=== PATIENT | female | born 1995 | race Caucasian/White ===

== ENCOUNTER → 2024-01-19 09:53 | Outpatient (REF) | payer OTHER, SELFPAY | LOC: RAD 09:53 | PROVIDERS: ATTENDING PHYSICIAN Physician Assistant Medical; FAMILY PHYSICIAN Family Medicine | DX: R10.11 Right upper quadrant pain (principal); R10.84 Generalized abdominal pain; K21.9 Gastro-esophageal reflux disease without esophagitis | CPT/HCPCS: 76700 ==

== ENCOUNTER → 2024-05-11 10:12 | Outpatient (REF) | payer OTHER, SELFPAY | LOC: RAD 10:12 | PROVIDERS: ATTENDING PHYSICIAN Obstetrics & Gynecology; FAMILY PHYSICIAN Family Medicine | DX: O26.859 Spotting complicating pregnancy, unspecified trimester (principal) | CPT/HCPCS: 76801; 76817 ==

== ENCOUNTER → 2024-05-25 08:45 | Outpatient (REF) | payer OTHER, SELFPAY | LOC: PNTC 08:45 | PROVIDERS: ATTENDING PHYSICIAN Nurse Practitioner Family | DX: O36.80X0 Pregnancy with inconclusive fetal viability, not applicable or unspecified (principal) | CPT/HCPCS: 76801; 76817 ==

== ENCOUNTER → 2024-06-22 06:52 | Outpatient (REF) | payer OTHER, SELFPAY | LOC: PNTC 06:52 | PROVIDERS: ATTENDING PHYSICIAN Obstetrics & Gynecology | DX: Z36.0 Encounter for antenatal screening for chromosomal anomalies (principal); Z36.82 Encounter for antenatal screening for nuchal translucency | CPT/HCPCS: 76801; 76813 ==

== ENCOUNTER → 2024-07-20 06:57 | Outpatient (REF) | payer OTHER, SELFPAY | LOC: PNTC 06:57 | PROVIDERS: ATTENDING PHYSICIAN Obstetrics & Gynecology | DX: O99.320 Drug use complicating pregnancy, unspecified trimester (principal); O99.891 Other specified diseases and conditions complicating pregnancy | CPT/HCPCS: 76805 ==

== ENCOUNTER → 2024-08-23 15:49 | Outpatient (REF) | payer OTHER, SELFPAY | LOC: PNTC 15:49 | PROVIDERS: ATTENDING PHYSICIAN Obstetrics & Gynecology | DX: Z34.80 Encounter for supervision of other normal pregnancy, unspecified trimester (principal) | CPT/HCPCS: 76811; 76817 ==

== ENCOUNTER → 2024-10-05 09:57 | Outpatient (REF) | payer OTHER, SELFPAY | LOC: PNTC 09:57 | PROVIDERS: ATTENDING PHYSICIAN Advanced Practice Midwife | DX: O35.5XX0 Maternal care for (suspected) damage to fetus by drugs, not applicable or unspecified (principal) | CPT/HCPCS: 76816 ==

== ENCOUNTER → 2024-11-15 11:15 | Outpatient (REF) | payer OTHER, SELFPAY | LOC: PNTC 11:15 | PROVIDERS: ATTENDING PHYSICIAN Obstetrics & Gynecology | DX: O99.320 Drug use complicating pregnancy, unspecified trimester (principal) | CPT/HCPCS: 76816 ==

== ENCOUNTER 2024-12-18 19:03 | Observation (INO) | payer OTHER, SELFPAY ==
[2024-12-18 19:44] VITALS: BP 129/94; BMI 26.7
== END 2024-12-18 20:26 | disposition home or self-care (01) ==
LOC: LDRP 19:03
PROVIDERS: ADMITTING PHYSICIAN Obstetrics & Gynecology; FAMILY PHYSICIAN Family Medicine
DX: O47.1 False labor at or after 37 completed weeks of gestation (principal); Z3A.38 38 weeks gestation of pregnancy; Z91.040 Latex allergy status
CPT/HCPCS: 59025; G0378

== ENCOUNTER 2024-12-30 11:14 | Inpatient (IN) | payer OTHER, SELFPAY ==
[2024-12-30 11:53] LABS: Hematocrit 34.3 % (37.0-47.0); Hemoglobin 11.9 g/dL (12.0-16.0); Mean Corp Hgb Conc. 34.7 g/dL (33.0-37.0); Mean Corpuscular Volume 85.3 fL (81.0-99.0); Nucleated Red Blood Cells % 0 %; Platelet Count 202 10^3/uL (130-400); Red Cell Dist. Width 12.9 % (11.5-14.5)
[2024-12-30 11:55] LABS: Urine Character Clear (Clear)
[2024-12-30 12:09] LABS: Urine Red Blood Cell 0-2 /HPF (0-2)
[2024-12-30 12:09] LABS: ALT (SGPT) < 10 U/L (0-35); AST (SGOT) 19 U/L (14-36); Albumin 3.8 g/dl (3.5-5.0); Alkaline Phosphatase 159 U/L (38-126); Blood Urea Nitrogen 11 mg/dl (7-17); Calcium 9.0 mg/dl (8.4-10.2); Carbon Dioxide 22 mmol/L (22-30); Chloride 106 mmol/L (98-107); Glucose 77 mg/dl (70-99); Potassium 3.8 mmol/L (3.5-5.1); Sodium 133 mmol/L (135-145); Total Protein 6.9 g/dl (6.3-8.2); eGFR > 60.00
[2024-12-30 12:55] VITALS: BP 132/92; BMI 27.1
[2024-12-30] MEDS: LR 1000 IV ×2 (13:30→21:28)
[2024-12-30] MEDS: LEXAPRO 20 MG PO (14:02)
[2024-12-30] MEDS: COMPAZINE 10 MG PO (14:02)
[2024-12-30] MEDS: IMITREX 100 MG PO (14:02)
[2024-12-30] MEDS: PROTONIX 40 MG PO ×2 (14:04→21:38)
[2024-12-30] MEDS: PITOCIN 30 UNITS/NSS 500 ML IV (18:50)
[2024-12-31] MEDS: COMPAZINE 10 MG PO ×2 (00:36→09:29)
[2024-12-31] MEDS: FENTANYL/BUPIVACAINE 100 EPIDURAL (01:12)
[2024-12-31] MEDS: SUBLIMAZE 100 MCG EPIDURAL (01:16)
[2024-12-31] MEDS: LR 1000 IV (03:59)
[2024-12-31 05:03] LABS: Cord ABG Comment CORD BLOOD
[2024-12-31 05:05] LABS: B.E. Cord ABG -13.7 mMOL/L; HCO3 Cord ABG 19.8 mmol/L; O2 Saturation % Cord ABG 16.2 %; PCO2 Cord ABG 84 mmHg; PO2 Cord ABG 16 mmHg; pH Cord ABG 6.98
[2024-12-31 05:09] LABS: B.E. Cord ABG -10.5 mMOL/L; HCO3 Cord ABG 20.5 mmol/L; O2 Saturation % Cord ABG 29.8 %; PCO2 Cord ABG 66 mmHg; PO2 Cord ABG 21 mmHg; pH Cord ABG 7.10
[2024-12-31] MEDS: PRENATAL PLUS 1 TABLET PO (08:48)
[2024-12-31] MEDS: COLACE 100 MG PO ×2 (08:48→20:53)
[2024-12-31] MEDS: PROTONIX 40 MG PO ×2 (08:48→20:52)
[2024-12-31] MEDS: LEXAPRO 20 MG PO (08:48)
[2024-12-31] MEDS: IMITREX 100 MG PO (09:52)
[2024-12-31] MEDS: MOTRIN 600 MG PO (21:09)
[2024-12-31] MEDS: AMBIEN 5 MG PO (23:09)
[2025-01-01 04:41] LABS: Hematocrit 30.7 % (37.0-47.0); Hemoglobin 10.2 g/dL (12.0-16.0)
[2025-01-01] MEDS: MOTRIN 600 MG PO (04:51)
[2025-01-01] MEDS: COMPAZINE 10 MG PO (09:21)
[2025-01-01] MEDS: COLACE 100 MG PO (09:22)
[2025-01-01] MEDS: PROTONIX 40 MG PO (09:23)
[2025-01-01] MEDS: PRENATAL PLUS 1 TABLET PO (09:23)
[2025-01-01] MEDS: LEXAPRO 20 MG PO (09:26)
== END 2025-01-01 15:20 | disposition home or self-care (01) | DRG 807 ==
LOC: LDRP 11:14
PROVIDERS: Obstetrics & Gynecology; ADMITTING PHYSICIAN Obstetrics & Gynecology
PROC: 10E0XZZ Delivery of Products of Conception, External Approach (ICD-10-PCS; 2024-12-31)
DX: O77.0 Labor and delivery complicated by meconium in amniotic fluid (principal); Z37.0 Single live birth; O76 Abnormality in fetal heart rate and rhythm complicating labor and delivery; O48.0 Post-term pregnancy; Z3A.40 40 weeks gestation of pregnancy; O69.81X0 Labor and delivery complicated by cord around neck, without compression, not applicable or unspecified; O66.0 Obstructed labor due to shoulder dystocia
CPT/HCPCS: 59025; 76815; 80053; 81003; 81015; 82570; 82803; 84156; 85014; 85018; 85025; 86780; 86850; 86900; 86901